=== PATIENT | female | born 1980 | race Caucasian/White ===

== ENCOUNTER 2024-02-13 15:11 | Emergency (ER) | payer OTHER ==
--- NOTE | 2024-02-13 16:03 | ED ---
General Adult HPI - General Chief complaint: GI Bleed Stated complaint: Rectal Bleeding Time Seen by Provider: 02/13/24 15:30 Source: patient, RN notes reviewed Mode of arrival: ambulatory Limitations: no limitations - History of Present Illness Initial comments: 43-year-old female presents emergency department chief complaint of abdominal pain and bloody diarrhea over the past 2 days. Patient said that initially diarrhea was liquid and brown in color, but turned pink and is now a dark red color and has not felt palpable area or hemorrhoid while she is using the bathroom. The last 2 days she will have severe feelings of abdominal pain, rushing to the bathroom but will not have a bowel movement instead is left blood and mucus in the toilet. Denies fevers, hematemesis, emesis. denies history of GI bleeds, denies NSAID use, drinks occasionally. no previous history of abdominal surgeries. She not take anything at home for symptoms and her abd ominal pain currently is rated as a 2 out of 10 - Related Data Previous Rx's Medication Instructions Recorded lisinopriL [Prinivil] 10 mg PO DAILY #21 tab 02/13/24 Allergies Allergy/AdvReac Type Severity Reaction Status Date / Time No Known Allergies Allergy Verified 02/13/24 15:18 Review of Systems ROS Statement: Those systems with pertinent positive or pertinent negative responses have been documented in the HPI. ROS Other: All systems not noted in ROS Statement are negative. Past Medical History Past Medical History: Hypertension Additional Past Medical History / Comment(s): migraines, History of Any Multi-Drug Resistant Organisms: None Reported Additional Past Surgical History / Comment(s): right hip arthroscopy, breast augmentation, Past Psychological History: Depression Smoking Status: Never smoker Past Alcohol Use History: Occasional Past Drug Use History: Marijuana General Exam Limitations: no limitations General appearance: alert, in no apparent distress Head exam: Present: atraumatic, normocephalic, normal inspection Eye exam: Present: normal appearance, PERRL, EOMI. Absent: scleral icterus, conjunctival injection, periorbital swelling ENT exam: Present: normal exam, mucous membranes moist Neck exam: Present: normal inspection. Absent: tenderness, meningismus, lymphadenopathy Respiratory exam: Present: normal lung sounds bilaterally. Absent: respiratory distress, wheezes, rales, rhonchi, stridor Cardiovascular Exam: Present: regular rate, normal rhythm, normal heart sounds. Absent: systolic murmur, diastolic murmur, rubs, gallop, clicks GI/Abdominal exam: Present: soft, tenderness (mild tenderness to deep palpation of the left-sided abdomen), normal bowel sounds. Absent: distended, guarding, rebound, rigid Extremities exam: Present: normal inspection, full ROM, normal capillary refill. Absent: tenderness, pedal edema, joint swelling, calf tenderness Back exam: Present: normal inspection Neurological exam: Present: alert, oriented X3, CN II-XII intact Psychiatric exam: Present: normal affect, normal mood Skin exam: Present: warm, dry, intact, normal color. Absent: rash Course Vital Signs 02/13/24 02/13/24 02/13/24 15:13 17:28 18:37 Temperature 98.3 F 97.8 F Pulse Rate 91 72 76 Respiratory 18 18 16 Rate Blood Pressure 165/112 157/113 168/109 O2 Sat by Pulse 99 100 100 Oximetry Medical Decision Making - Medical Decision Making Was pt. sent in by a medical professional or institution (MAGGIE Lacey, WOOD CARVING MACHINE OPERATOR, urgent care, hospital, or custodial...) When possible be specific @ -No Did you speak to anyone other than the patient for history (EMS, parent, family, police, friend...)? What history was obtained from this source @ -No Did you review nursing and triage notes (agree or disagree)? Why? @ -I reviewed and agree with nursing and triage notes Were old charts reviewed (outside hosp., previous admission, EMS record, old EKG, old radiological studies, urgent care reports/EKG's, custodial records)? Report findings @ -No old charts were reviewed Differential Diagnosis (chest pain, altered mental status, abdominal pain women, abdominal pain men, vaginal bleeding, weakness, fever, dyspnea, syncope, headache, dizziness, GI bleed, back pain, seizure, CVA, palpatations, mental hea lth, musculoskeletal)? @ -Differential GI Bleed: Esophageal varices, aortoenteric fistula, Cintia-Brooke, gastritis, peptic ulcer disease, diverticulosis, inflammatory bowel disease, hemorrhoids, fissure, colitis, malignancy, Meckels diverticulum, this is not meant to be an all- inclusive list. EKG interpreted by me (3pts min.). @ -None X-rays interpreted by me (1pt min.). @ -None done CT interpreted by me (1pt min.). @ -CT abdomen/pelvis with contrast revealed wall thickening of the transverse colon and descending colon consistent with colitis. 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 min.). @ -None done What testing was considered but not performed or refused? (CT, X-rays, U/S, labs)? Why? @ -None What meds were considered but not given or refused? Why? @ -None Did you discuss the management of the patient with other professionals (professionals i.e. , PA, WOOD CARVING MACHINE OPERATOR, lab, RT, psych nurse, social professionals, granite sandblaster apprentice, teacher, veterinary medical officer, mattress spring encaser)? Give summary @ -No Was smoking cessation discussed for >3mins.? @ -No Was critical care preformed (if so, how long)? @ -No Were there social determinants of health that impacted care today? How? (Homelessness, low income, unemployed, alcoholism, drug addiction, transportation, low edu. Level, literacy, decrease access to med. care, correction, rehab)? @ -No Was there de-escalation of care discussed even if they declined (Discuss DNR or withdrawal of care, Hospice)? DNR status @ -No What co-morbidities impacted this encounter? (DM, HTN, Smoking, COPD, CAD, Cancer, CVA, ARF, Chemo, Hep., AIDS, mental health diagnosis, sleep apnea, morbid obesity)? @ -None Was patient admitted / discharged? Hospital course, mention meds given and route, prescriptions, significant lab abnormalities, going to OR and other pertinent info. @ -Discharged. 43-year-old female chief complaint of bloody diarrhea. CBC unremarkable, BUN and creatinine within normal limits, no evidence of electrolyte abnormalities. CT abdomen/pelvis with contrast revealed wall thic kening of the transverse colon and descending colon consistent with colitis. 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 Patient's symptoms are likely secondary to gastroenteritis leading to bloody diarrhea. Case with my attending Dr. Baldwin who is agreeable with laboratory interpretation and discharge instructions. Was given referral to GI specialist for further intervention of incidental finding on abdominal CT. Patient was given starter pack of Lomotil to help with stopping her diarrhea over the next few days. If patient's symptoms worsen or she becomes febrile hypotensive patient return to the emergency department for further evaluation. Generally, during patient's stay in the emergency department, she was found to have multiple readings of elevated blood pressure. Patient states that she was on lisinopril a few years ago, but has not been on any blood pressure control medication since her . Patient is agreeable to going home with low-dos e lisinopril prescription for 3 weeks, and has been instructed to follow-up with her primary care provider for further intervention. Denied any symptoms of elevated blood pressure such as headaches, chest pain, palpitations, dizziness, lightheadedness. Undiagnosed new problem with uncertain prognosis? @ -No Drug Therapy requiring intensive monitoring for toxicity (Heparin, Nitro, Insu anthony, Cardizem)? @ -No Were any procedures done? @ -No Diagnosis/symptom? @ -Abdominal pain, colitis, bloody diarrhea Acute, or Chronic, or Acute on Chronic? @ -acute Uncomplicated (without systemic symptoms) or Complicated (systemic symptoms)? @ -Uncomplicated Side effects of treatment? @ -No Exacerbation, Progression, or Severe Exacerbation? @ -No Poses a threat to life or bodily function? How? (Chest pain, USA, SD, pneumonia, PE, COPD, DKA, ARF, appy, cholecystitis, CVA, Diverticulitis, Homicidal, Suicidal, threat to staff... and all critical care pts) @ -No - Lab Data Result diagrams: 02/13/24 15:55 02/13/24 15:55 Lab Results 02/13/24 02/13/24 02/13/24 Range/Units 15:55 15:55 15:55 WBC 6.7 (3.8-10.6) k/uL RBC 4.44 (3.80-5.40) m/uL Hgb 14.2 (11.4-16.0) gm/dL Hct 41.2 (34.0-46.0) % MCV 92.7 (80.0-100.0) fL MCH 32.0 (25.0-35.0) pg MCHC 34.5 (31.0-37.0) g/dL RDW 11.8 (11.5-15.5) % Plt Count 145 L (150-450) k/uL MPV 7.7 Neutrophils % 70 % Lymphocytes % 22 % Monocytes % 5 % Eosinophils % 2 % Basophils % 0 % Neutrophils # 4.7 (1.3-7.7) k/uL Lymphocytes # 1.5 (1.0-4.8) k/uL Monocytes # 0.4 (0-1.0) k/uL Eosinophils # 0.1 (0-0.7) k/uL Basophils # 0.0 (0-0.2) k/uL Sodium 139 (137-145) mmol/L Potassium 4.1 (3.5-5.1) mmol/L Chloride 108 H (98-107) mmol/L Carbon Dioxide 23 (22-30) mmol/L Anion Gap 8 mmol/L BUN 20 H (7-17) mg/dL Creatinine 0.76 (0.52-1.04) mg/dL Est GFR (CKD-EPI)AfAm >90 (>60 ml/min/1.73 sqM) Est GFR (CKD-EPI)NonAf >90 (>60 ml/min/1.73 sqM) Glucose 90 (74-99) mg/dL Calcium 9.4 (8.4-10.2) mg/dL Magnesium 2.0 (1.6-2.3) mg/dL Total Bilirubin 0.5 (0.2-1.3) mg/dL AST 25 (14-36) U/L ALT 16 (4-34) U/L Alkaline Phosphatase 72 (38-126) U/L Total Protein 7.4 (6.3-8.2) g/dL Albumin 4.4 (3.5-5.0) g/dL Amylase 70 (30-110) U/L Lipase 53 (23-300) U/L Urine Color Colorless Urine Appearance Clear (Clear) Urine pH 6.0 (5.0-8.0) Ur Specific [place] >1.050 H (1.001-1.035) Urine Protein Negative (Negative) Urine Glucose (UA) Negative (Negative) Urine Ketones Trace H (Negative) Urine Blood Trace H (Negative) Urine Nitrite Negative (Negative) Urine Bilirubin Negative (Negative) Urine Urobilinogen <2.0 (<2.0) mg/dL Ur Leukocyte Esterase Negative (Negative) Urine RBC 1 (0-5) /hpf Urine WBC <1 (0-5) /hpf Ur Squamous Epith Cells 4 (0-4) /hpf Disposition Clinical Impression: Colitis Narrative: Please return to the Emergency Department if symptoms worsen or any other concerns. Disposition: HOME SELF-CARE Condition: Good Instructions (If sedation given, give patient instructions): Acute Diarrhea (ED) Prescriptions: lisinopriL [Prinivil] 10 mg PO DAILY #21 tab Is patient prescribed a controlled substance at d/c from ED?: No Referrals: Nonstaff,Physician [Primary Care Provider] - 1-2 days Ca Gonzalez MD [STAFF PHYSICIAN] - 1-2 days Time of Disposition: 18:16
[2024-02-13 16:09] LABS: Basophils % (A) 0 %; Eosinophils # (A) 0.1 k/uL (0-0.7); Eosinophils % (A) 2 %; HCT 41.2 % (34.0-46.0); HGB 14.2 gm/dL (11.4-16.0); Lymphocytes # (A) 1.5 k/uL (1.0-4.8); Lymphocytes % (A) 22 %; MCHC 34.5 g/dL (31.0-37.0); MCV 92.7 fL (80.0-100.0); Mean Platelet Volume 7.7; Monocytes # (A) 0.4 k/uL (0-1.0); Monocytes % (A) 5 %; Neutrophils # (A) 4.7 k/uL (1.3-7.7); Neutrophils % (A) 70 %; Platelet Count 145 k/uL (150-450); RBC 4.44 m/uL (3.80-5.40); RDW 11.8 % (11.5-15.5); WBC 6.7 k/uL (3.8-10.6)
[2024-02-13 16:20] LABS: ALT 16 U/L (4-34); AST 25 U/L (14-36); African American GFR (CKD) >90 (>60 ml/min/1.73 sqM); Albumin 4.4 g/dL (3.5-5.0); Alkaline Phosphatase 72 U/L (38-126); Amylase 70 U/L (30-110); Anion Gap 8 mmol/L; Blood Urea Nitrogen 20 mg/dL (7-17); Calcium 9.4 mg/dL (8.4-10.2); Carbon Dioxide 23 mmol/L (22-30); Chloride 108 mmol/L (98-107); Glucose 90 mg/dL (74-99); Lipase 53 U/L (23-300); Non-African American GFR(CKD) >90 (>60 ml/min/1.73 sqM); Potassium 4.1 mmol/L (3.5-5.1); Sodium 139 mmol/L (137-145); Total Bilirubin 0.5 mg/dL (0.2-1.3); Total Protein 7.4 g/dL (6.3-8.2)
--- NOTE | 2024-02-13 16:36 | CT ---
EXAMINATION TYPE: CT abdomen pelvis w con CT DLP: 441.5 mGycm, Automated exposure control for dose reduction was used. DATE OF EXAM: 02/13/2024 4:27 PM COMPARISON: None CLINICAL INDICATION:Female, 43 years old with history of bloody diarrhea, abdominal pain; BLOOD IN ST OOL TECHNIQUE: Axial CT abdomen pelvis w con;Sagittal and coronal reformats were created on a separate w orkstation. Contrast used:100 mL of Isovue 300 with IV Contrast, (none if empty) Oral contrast used: without Oral Contrast (none if empty) FINDINGS: LOWER CHEST: Unremarkable ABDOMEN LIVER: Unremarkable GALLBLADDER AND BILE DUCTS: Unremarkable. PANCREAS: Unremarkable. SPLEEN: Unremarkable. ADRENAL GLANDS: Unremarkable. KIDNEYS AND URETERS: No evidence of hydronephrosis or renal calculus. The ureters are unremarkable. PELVIS BLADDER: Unremarkable REPRODUCTIVE: Unremarkable. ABDOMEN & PELVIS STOMACH AND BOWEL: No evidence of bowel obstruction. The appendix is normal. There is circumferential wall thickening of the descending colon as well as short segment in the transverse colon near the sp lenic flexure. PERITONEUM/RETROPERITONEUM: No evidence of pneumoperitoneum or free fluid. VASCULATURE: No evidence of aortic aneurysm. Narrowing of the left renal artery as it crosses the aor ta and the superior mesenteric artery with a slitlike morphology. This results in multiple tortuous d ilated pelvic vessels. MUSCULOSKELETAL: No acute osseous abnormalities LYMPH NODES: No gross evidence for lymphadenopathy. SOFT TISSUE/ABDOMINAL WALL: Unremarkable IMPRESSION: 1. Short segment of circumferential wall thickening of the transverse colon distally and descending colon which may be due to underdistention. Correlate for colitis. 2. Findings suggestive of pelvic congestion syndrome secondary to Nutcracker syndrome with compressi on of the left renal vein resulting in multiple tortuous dilated vessels in the pelvis. 3. No evidence for acute abdominal process. 4. Normal appendix.
[2024-02-13] MEDS: SODIUM CHLORIDE 0.9% 1,000 ML IV STA (17:23)
[2024-02-13 17:43] LABS: Appearance,Urine Clear (Clear); Bilirubin,Urine Negative (Negative); Blood,Urine Trace (Negative); Color,Urine Colorless; Glucose,Urine (UA) Negative (Negative); Ketones,Urine Trace (Negative); Leukocyte Esterase,Urine Negative (Negative); Nitrite,Urine Negative (Negative); Protein,Urine Negative (Negative); RBC,Urine 1 /hpf (0-5); Squamous Epithelial Cell,Urine 4 /hpf (0-4); Urobilinogen,Urine <2.0 mg/dL (<2.0); WBC,Urine <1 /hpf (0-5)
[2024-02-13 17:47] LABS: Specific Gravity,Urine >1.050 (1.001-1.035)
[2024-02-13] MEDS: DIPHENOX-ATROP STARTER PACK 8 TAB BTL PO STA (18:25)
[2024-02-13 19:16] VITALS: BP 168/109; PULSE 76; RESP 16; TEMP 97.8
== END 2024-02-13 18:46 | disposition home or self-care (01) ==
LOC: EC 15:11
DX: K52.9 Noninfective gastroenteritis and colitis, unspecified (principal); F12.90 Cannabis use, unspecified, uncomplicated
CPT/HCPCS: 36415; 80053; 82150; 83690; 83735; 85025; 81001; 74177; 99285; 96360; Q9967

== ENCOUNTER → 2024-03-21 | Outpatient (CLI) | payer OTHER ==
--- NOTE | 2024-03-21 10:32 | US ---
EXAMINATION TYPE: US abdomen comp/pelvis limited DATE OF EXAM: 03/21/2024 COMPARISON: NONE CLINICAL INDICATION: Female, 43 years old with history of R10.9 ABDOMINAL PAIN; Possible nutcracker s yndrome per ct scan. EXAM MEASUREMENTS: Liver Length: 11.8 cm Gallbladder Wall: .1 cm CBD: .8 cm Spleen: 8.5 cm Right Kidney: 8.6 x 3.3 x 4.0 cm Left Kidney: 9.2 x 3.8 x 3.7 cm Pancreas: wnl Liver: wnl Gallbladder: wnl CBD: Dilated Spleen: wnl Right Kidney: wnl Left Kidney: wnl Upper IVC: wnl Abd Aorta: wnl Bladder: wnl Bilateral Jets Seen Yes IMPRESSION: 1. No significant adenopathy seen. 2. Refer to CT abdomen and pelvis dated 02/13/2024 for discussion of possible nutcracker syndrome.
== END | disposition home or self-care (01) ==
LOC: RADUSWWP 07:59
PROVIDERS: ATTEND Internal Medicine Gastroenterology
DX: R10.9 Unspecified abdominal pain (principal)
CPT/HCPCS: 76700; 76857

== ENCOUNTER → 2024-04-26 | Outpatient (CLI) | payer OTHER ==
--- NOTE | 2024-04-26 11:29 | CT ---
EXAMINATION TYPE: CT angio abdomen pelvis, without and with contrast DATE OF EXAM: 04/26/2024 COMPARISON: 02/13/2024 HISTORY: 43-year-old female R1 0.9, abdominal pain, recent dx of nutcracker syndrome. TECHNIQUE: Contiguous axial scanning of the abdomen and pelvis following administration of 100 ml Iso ananya 370 IV contrast. Coronal/sagittal reconstructions performed. 3-D reconstructions generated on a dedicated independent workstation. CT DLP: 1047 mGycm Automated exposure control for dose reduction was used. FINDINGS: Bilateral breast implants partially visualized. Heart normal size without pericardial effusion. Lung bases clear without pleural effusion. Noncontrast and early arterial phase imaging of the liver shows a benign anterior right liver lobe cy st measuring 7 mm. Additional tiny inferior right liver lobe cyst measuring 5 mm. No abnormal gallbla dder distention. No biliary ductal dilatation. Adrenal glands, right kidney, mottled early arterial enhancement of the spleen, and pancreas show no gross evidence for leak. 3 mm nonobstructive left renal stone. There is redemonstration of distention of the left renal vein with transition point at the level of t he SMA. The aorto SMA distance is 3.5 mm versus 3.0 mm, previously, still narrowed. The aortic - SMA angle on the sagittal series is approximately 21 degrees, also reduced. No dilated small bowel, free fluid, or free air. No mesenteric or retroperitoneal lymphadenopathy. Scattered mild to moderate stool. No pericolic inflammatory change seen. Bladder partially distended. Uterus anteverted. Both ovaries are visualized. The previously seen diaz uterine varices and dilated left gonadal vein that is well depicted on the arterial phase scan. No ab normal fluid collection the pelvis or pelvic lymphadenopathy. Bones: No osseous destructive process. IMPRESSION: 1. MILDLY DISTENDED LEFT RENAL VEIN WITH TRANSITION POINT AT THE SMA. REDUCED AORTIC- SMA ANGLE AND A ORTIC-SMA DISTANCE ABOVE. FINDINGS MAY BE SEEN WITH NUTCRACKER SYNDROME. 2. THE PREVIOUSLY SEEN PARAUTERINE VARICES AND DISTENDED LEFT GONADAL VEIN ARE NOT WELL DEPICTED O N ARTERIAL PHASE SCAN. 3. NONOBSTRUCTIVE 3 MM LEFT RENAL STONE.
== END | disposition home or self-care (01) ==
LOC: RADCTMAIN 09:22
PROVIDERS: ATTEND Internal Medicine Geriatric Medicine
DX: N20.0 Calculus of kidney (principal); I87.8 Other specified disorders of veins
CPT/HCPCS: 74174; Q9967